=== PATIENT | male | born 1980 | race Caucasian/White ===

== ENCOUNTER 2018-07-15 10:01 | Emergency (ER) | payer SELFPAY ==
[2018-07-15 10:56] LABS: ABS Basophils 0.1 10^3/ul (0-0.2); ABS Eosinophils 0.2 10^3/ul (0-0.6); ABS Lymphocytes 1.5 10^3/ul (1.0-4.8); ABS Monocytes 0.8 10^3/ul (0-0.8); ABS Neutrophils 12.1 10^3/ul (1.5-7.7); Eosinophil % 1.2 %; Hematocrit 47 % (42-52); Hemoglobin 15.7 g/dL (14.0-18.0); Lymphocyte % 10.1 %; Mean Corpuscular HGB Conc 34 g/dL (31-36); Mean Corpuscular Hemoglobin 33 pg (27-31); Mean Corpuscular Volume 98 fL (80-94); Mean Platelet Volume 8.1 fL (7.4-10.4); Nucleated Red Blood Cells % 0.1; Platelet Count 369 10^3/uL (150-450); Red Blood Count 4.77 10^6 /uL (4.18-5.48); Red Cell Distribution Width 13 % (10.5-15); White Blood Count 14.6 10^3/uL (3.5-10.8)
[2018-07-15 11:00] LABS: INR 0.93 (0.82-1.09)
[2018-07-15 11:15] LABS: Troponin I 0.01 ng/mL (<0.04)
[2018-07-15 11:36] LABS: Albumin 4.7 g/dL (3.2-5.2); Albumin/Globulin Ratio 1.3 (1-3); BUN/Creatinine Ratio 21.8 (8-20); EGFR African American 119.5 (>60); EGFR Non-African American 98.7 (>60); Globulin 3.6 g/dL (2-4); Potassium 4.1 mmol/L (3.5-5.0); Total Bilirubin 0.5 mg/dL (0.2-1.0); Total Protein 8.3 g/dL (6.4-8.9)
--- NOTE | 2018-07-15 11:44 | ED ---
HPI Chest Pain - HPI Summary HPI Summary: Patient is a 37 y/o M presenting to ED with complaints of constant, left sided chest pain. Pain had onset two days ago, 07/13/18. He notes that walking, deep breaths, and movement aggravates the pain. Pain is described as sharp/shooting. He notes some SOB this morning while working and denies diaphoresis, N/V. Patient states that he has had some sleep disturbance over the past few days due to his concern with his Sx. 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 Patient believes Sx could be muscloskeletal but patient is concerned due to FMHx of cardiac disease. No PMHx is reported, PSHx of hernia repair, FMHx of cardiac disease, patient occasionally drinks alcohol, is a current smoker, denies substance usage. On triage, pain is rated 7/10, nothing else is noted to aggravate/alleviate Sx. Home medications and allergies are reviewed. - History of Current Complaint Chief Complaint: EDChestPainROMI Time Seen by Provider: 07/15/18 11:40 Hx Obtained From: Patient Onset/Duration: Started Days Ago - two days ago, Still Present Timing: Constant, Lasting Days - two days ago Current Severity: Severe - 7/10 Pain Intensity: 7 Pain Scale Used: 0-10 Numeric Chest Pain Location: Left Anterior Character: Sharp/Stabbing, Other: - shooting Aggravating Factor(s): Movement, Deep Breaths, Other: - walking Alleviating Factor(s): Nothing Associated Signs and Symptoms: Positive: Chest Pain, Shortness of Breath - this morning while working. Negative: Diaphoresis, Nausea, Vomiting - Allergy/Home Medications Allergies/Adverse Reactions: Allergies Allergy/AdvReac Type Severity Reaction Status Date / Time varenicline [From Chantix] Allergy Facial Verified 07/15/18 10:14 Redness/Flushing Home Medications: Home Medications NK [No Home Medications Reported] 07/15/18 [History Confirmed 07/15/18] PMH/Surg Hx/FS Hx/Imm Hx Cardiovascular History: Denies: Hx Pacemaker/ICD Sensory History: Denies: Hx Legally Blind, Hx Deafness, Hx Hearing Aid Opthamlomology History: Denies: Hx Legally Blind EENT History: Denies: Hx Deafness Psychiatric History: Denies: Hx Panic Disorder - Surgical History Surgery Procedure, Year, and Place: HERNIA Infectious Disease History: No Infectious Disease History: Denies: Traveled Outside the [place] in Last 30 Days - Family History Known Family History: Positive: Cardiac Disease - Social History Alcohol Use: Occasionally Substance Use Type: Reports: None Smoking Status (MU): Current Every Day Smoker Review of Systems Negative: Skin Diaphoresis Positive: Chest Pain Positive: Shortness Of Breath Negative: Vomiting, Nausea Psychological: Other - POSITIVE - SLEEP DISTRUBANCE DUE TO CONCERN ABOUT SX All Other Systems Reviewed And Are Negative: Yes Physical Exam - Summary Physical Exam Summary: Appearance: Well-appearing, Well-nourished, lying in bed comfortably Skin: Warm, dry, no obvious rash Eyes: sclera anicteric, no conjunctival pallor ENT: mucous membranes moist, pharynx appears normal Neck: Supple, nontender Respiratory: Clear to auscultation, no signs of respiratory distress Cardiovascular: Normal S1, S2. No murmurs. Normal distal pulses in tibial and radial bilaterally. Abdomen: Soft, nontender, normal active bowel sounds present Musculoskeletal: Normal, Strength/ROM Intact Neurological: A&Ox3, awake and alert, mentation is normal, speech is fluent and appropriate Psychiatric: affect is normal, does not appear anxious or depressed Triage Information Reviewed: Yes Vital Signs On Initial Exam: Initial Vitals Temp Pulse Resp BP Pulse Ox 98.0 F 106 18 139/79 100 07/15/18 10:11 07/15/18 10:11 07/15/18 10:11 07/15/18 10:11 07/15/18 10:11 Vital Signs Reviewed: Yes Diagnostics - Vital Signs Vital Signs Temp Pulse Resp BP Pulse Ox 07/15/18 10:11 98.0 F 106 18 139/79 100 - Laboratory Lab Results: Lab Results 07/15/18 07/15/18 07/15/18 Range/Units 10:40 10:40 10:40 WBC 14.6 H (3.5-10.8) 10^3/uL RBC 4.77 (4.18-5.48) 10^6 /uL Hgb 15.7 (14.0-18.0) g/dL Hct 47 (42-52) % MCV 98 H (80-94) fL MCH 33 H (27-31) pg MCHC 34 (31-36) g/dL RDW 13 (10.5-15) % Plt Count 369 (150-450) 10^3/uL MPV 8.1 (7.4-10.4) fL Neut % (Auto) 82.5 % Lymph % (Auto) 10.1 % [place] % (Auto) 5.7 % Eos % (Auto) 1.2 % Baso % (Auto) 0.5 % Absolute Neuts (auto) 12.1 H (1.5-7.7) 10^3/ul Absolute Lymphs (auto) 1.5 (1.0-4.8) 10^3/ul Absolute Monos (auto) 0.8 (0-0.8) 10^3/ul Absolute Eos (auto) 0.2 (0-0.6) 10^3/ul Absolute Basos (auto) 0.1 (0-0.2) 10^3/ul Absolute Nucleated RBC 0.0 10^3/ul Nucleated RBC % 0.1 INR (Anticoag Therapy) 0.93 (0.82-1.09) Sodium 134 L (135-145) mmol/L Potassium 4.1 (3.5-5.0) mmol/L Chloride 102 (101-111) mmol/L Carbon Dioxide 22 (22-32) mmol/L Anion Gap 10 (2-11) mmol/L BUN 19 (6-24) mg/dL Creatinine 0.87 (0.67-1.17) mg/dL Est GFR ( Amer) 119.5 (>60) Est GFR (Non-Af Amer) 98.7 (>60) BUN/Creatinine Ratio 21.8 H (8-20) Glucose 104 H (70-100) mg/dL Calcium 10.0 (8.6-10.3) mg/dL Total Bilirubin 0.50 (0.2-1.0) mg/dL AST 31 (13-39) U/L ALT 30 (7-52) U/L Alkaline Phosphatase 81 (34-104) U/L Troponin I 0.01 (<0.04) ng/mL Total Protein 8.3 (6.4-8.9) g/dL Albumin 4.7 (3.2-5.2) g/dL Globulin 3.6 (2-4) g/dL Albumin/Globulin Ratio 1.3 (1-3) Result Diagrams: 07/15/18 10:40 07/15/18 10:40 Lab Statement: Any lab studies that have been ordered have been reviewed, and results considered in the medical decision making process. - EKG 1015 Cardiac Rate: Tachycardia - rate of 104 BPM EKG Rhythm: Sinus Tachycardia Summary of EKG Findings: Sinus tachycardia at 104 BPM, P waves, QRS complex, and T waves are within normal limits, T waves and intervals are normal, no ischemic changes. This is a normal EKG. Chest Pain Course/Dx - Course Course Of Treatment: Patient is a 37 y/o M presenting to ED with complaints of constant, left sided chest pain. Pain had onset two days ago, 07/13/18. He notes that walking, deep breaths, and movement aggravates the pain. Pain is described as sharp/shooting. He notes some SOB this morning while working and denies diaphoresis, N/V. Patient states that he has had some sleep disturbance over the past few days due to his concern with his Sx. 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 Patient believes Sx could be muscloskeletal but patient is concerned due to FMHx of cardiac disease. Physical exam is unremarkable. Sinus tachycardia at 104 BPM, P waves, QRS complex, and T waves are within normal limits, T waves and intervals are normal, no ischemic changes. This is a normal EKG. Labs showed WBC 14.6, MCV 98, MCH 33, absolute neuts 12.1, sodium 134, BUN/creatinine ratio 21.8, glucose 104, trop 0.01. Results of bloodwork and EKG were discussed with the patient. Patient is agreeable with discharge to home. - Diagnoses Provider Diagnoses: Chest wall pain Discharge - Sign-Out/Discharge Documenting (check all that apply): Patient Departure - discharge Patient Received Moderate/Deep Sedation with Procedure: No - Discharge Plan Condition: Stable Disposition: HOME Patient Education Materials: Chest Wall Pain (ED) Referrals: Anika Chavez NP [Primary Care Provider] - If Needed Additional Instructions: It may take a couple of weeks for the pain to go away, so as long as it's not getting worse and you don't develop any new symptoms just let it heal. OTC pain killers like motrin, tyleno or alleve can help with the pain. - Billing Disposition and Condition Condition: STABLE Disposition: Home - Attestation Statements Document Initiated by Gabriele: Yes Documenting [place]: LARISA BAIRD Provider For Whom Gabriele is Documenting (Include Credential): LANDY STALLINGS MD Scribe Attestation: LARISA Lucia, scribed for LANDY STALLINGS MD on 07/15/18 at 2050. Scribe Documentation Reviewed: Yes Provider Attestation: The documentation as recorded by the LARISA castillo accurately reflects the service I personally performed and the decisions made by me, LANDY STALLINGS MD Status of Scribe Document: Viewed
[2018-07-15 12:02] VITALS: BP 128/81
== END 2018-07-15 12:00 | disposition home or self-care (01) ==
LOC: ED 10:01
DX: R07.89 Other chest pain (principal); F17.210 Nicotine dependence, cigarettes, uncomplicated
CPT/HCPCS: 36415; 80053; 84484; 85025; 85610; 93005; 99282